=== PATIENT | male | born 1965 | race Hispanic/Latino ===

== ENCOUNTER 2017-03-09 17:43 | Emergency (ER) | payer SELFPAY ==
[2017-03-09 18:24] LABS: Urine Drugs of Abuse Note Disclamer
[2017-03-09 18:47] LABS: Bilirubin,Urine NEG (Negative); Blood,Urine NEG (Negative); Ketones,Urine NEG (Negative); Leukocyte Esterase,Urine NEG (Negative); Mucus,Urine FEW /HPF; Nitrite,Urine NEG (Negative); Protein,Urine <15 mg/dL mg/dL (Negative); Urobilinogen,Urine < 2.0 mg/dL (<2.0)
[2017-03-09] MEDS ORDERED: TYLENOL PO ONE (19:16)
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
[2017-03-09 20:08] VITALS: BP 136/94
--- NOTE | 2017-03-10 08:30 | XRay Report ---
RIGHT SHOULDER THREE VIEWS: 03/09/17 17:43:00 CLINICAL: Fall and pain. FINDINGS: Normal glenohumeral alignment. Normal AC joint. No fracture or dislocation. Very mild degenerative change of the greater tuberosity and at the glenohumeral joint. Normal soft tissues. IMPRESSION: Mild degenerative change but otherwise normal.
== END 2017-03-09 20:35 | disposition home or self-care (01) ==
LOC: ED 17:43
DX: R55 Syncope and collapse (principal); M25.511 Pain in right shoulder; F17.210 Nicotine dependence, cigarettes, uncomplicated
CPT/HCPCS: 80307; 81001; 93005; 93010; 99284